=== PATIENT | female | born 1950 | race African-American/Black ===

== ENCOUNTER 2017-06-29 10:57 | Inpatient (IN) | payer BC ==
[~2017-06-29] VITALS: Ht 170.2 cm; Wt 58.5 kg
[2017-06-29 10:59] VITALS: BP_SYST 109
[2017-06-29] MEDS ORDERED: NACL 0.9% 1,000 ML IV SCH (11:13)
[2017-06-29] MEDS ORDERED: DILTIAZEM HCL 25 MG/5 ML VIAL IVP ONE (11:30)
[2017-06-29] MEDS ORDERED: AMIODARONE HCL 150 MG in D5W 97 ML IV ONE (12:00)
[2017-06-29 12:10] LABS: HEMOGLOBIN 13.1 g/dL (12.0-16.0); RED CELL DISTRIBUTION WIDTH 14.2 % (9.0-15.0)
[2017-06-29] MEDS ORDERED: AMIODARONE HCL 150 MG/3ML VIAL ONE (12:13)
[2017-06-29 12:15] LABS: CALCIUM 8.7 mg/dL (8.4-11.0); CREATININE 1.06 mg/dL (0.55-1.30); POTASSIUM 4.5 mmol/L (3.5-5.1)
[2017-06-29 12:16] LABS: BILIRUBIN,URINE NEGATIVE (NEGATIVE); BLOOD, URINE NEGATIVE (NEGATIVE); CLARITY/URINE SL HAZY (CLEAR); COLOR,URINE YELLOW (YELLOW); GLUCOSE,URINE NEGATIVE (NEGATIVE); KETONES,URINE NEGATIVE (NEGATIVE); LEUKOCYTE ESTERASE ,URINE 1+ (NEGATIVE); NITRITE, URINE NEGATIVE (NEGATIVE); PH,URINE 5.5 (5.0-8.0); PROTEIN URINE NEGATIVE (NEGATIVE); UROBILINOGEN,URINE 0.2 (0.2-1.0)
[2017-06-29 12:20] LABS: ALBUMIN 3.9 g/dL (3.4-4.8); TOTAL BILIRUBIN 0.5 mg/dL (0.0-1.0)
[2017-06-29 12:21] LABS: BASOPHILS # (AUTO) 0.1 K/uL (0.0-0.2); EOSINOPHILS # (AUTO) 0.1 K/uL (0.0-0.4); EOSINOPHILS % (AUTO) 1.8 % (0.0-4.0); HEMATOCRIT 39.8 % (36-48); LYMPHOCYTES # (AUTO) 2.1 K/uL (1.0-5.5); LYMPHOCYTES % (AUTO) 42.8 % (20.5-51.5); MEAN CORPUSCULAR HEMOGLOBIN 32 pg (27-31); MEAN CORPUSCULAR HGB CONC 33 % (32-36); MEAN CORPUSCULAR VOLUME 98 fL (79.0-98.0); MONOCYTES # (AUTO) 0.5 K/uL (0.0-1.0); MONOCYTES % (AUTO) 10.1 % (1.7-9.3); NEUTROPHILS # (AUTO) 2.1 K/uL (1.8-7.7); NEUTROPHILS % (AUTO) 43.3 % (40.0-70.0); PLATELET COUNT (AUTO) 153 K/uL (130-430); RED BLOOD CELL COUNT(AUTO) 4.06 MIL/uL (4.2-6.2); WHITE BLOOD COUNT (AUTO) 4.9 K/uL (4.8-10.8)
[2017-06-29 12:26] LABS: BACTERIA,URINE FEW /HPF (None Seen); RBC,URINE 0-3 /HPF (0-3)
[2017-06-29 12:27] LABS: MUCUS,URINE 1+ /LPF (None Seen)
[2017-06-29 13:54] LABS: BARBITURATE, URINE NEGATIVE (NEG <=200); BENZODIAZEPINE, URINE NEGATIVE (NEG <=150); CANNABINOID, URINE NEGATIVE (NEG <=50); COCAINE, URINE NEGATIVE (NEG <=150); METHAMPHETAMINES SCREEN,URINE NEGATIVE (NEG <=500); OPIATE, URINE NEGATIVE (NEG <=100); PHENCYCLIDINE SCREEN,URINE NEGATIVE (NEG <=25); UR TRICYCLIC ANTIDEPRESSANTS NEGATIVE (NEG <=300); URINE AMPHETAMINE NEGATIVE (NEG <=500); URINE METHADONE NEGATIVE (NEG <=200); URINE OXYCODONE SCREEN NEGATIVE (NEG <=100); URINE PROPOXYPHENE SCREEN NEGATIVE (NEG <=300)
[2017-06-29] MEDS ORDERED: METOPROLOL TARTRATE 25 MG TABLET PO SCH (14:00)
[2017-06-29 14:25] VITALS: BP_SYST 105
[2017-06-29] MEDS ORDERED: AMIODARONE HCL 200 MG TABLET PO ONE (16:15)
[2017-06-29 17:57] VITALS: BP_SYST 100
[2017-06-29] MEDS ORDERED: METOPROLOL TARTRATE 25 MG TABLET PO ONE (18:00)
[2017-06-29] MEDS ORDERED: HEPARIN 25,000 UNITS/D5W 250ML 250 ML IV PRN (19:00)
[2017-06-29] MEDS ORDERED: HEPARIN SODIUM,PORCINE 3000 UNITS/0.6 ML BOLUS IVP PRN (19:00)
[2017-06-29] MEDS ORDERED: HEPARIN SODIUM,PORCINE 5000 UNITS/ML VIAL IV ONE (19:00)
[2017-06-29] MEDS ORDERED: HEPARIN SODIUM,PORCINE 2000 UNITS/0.4 ML BOLUS IVP PRN (19:00)
[2017-06-29 20:00] VITALS: BP_SYST 97
[2017-06-29] MEDS: METOPROLOL TARTRATE 25 MG TABLET PO SCH (21:00)
[2017-06-29 21:03] LABS: PROTHROMBIN TIME 10.4 SECS (9.5-12.5)
[2017-06-29] MEDS: HEPARIN 25,000 UNITS in 250 ML PREMIX IV PRN (22:19)
[2017-06-30] VITALS: BP_SYST 99
[2017-06-30 04:04] VITALS: BP_SYST 101
[2017-06-30 04:50] LABS: EOSINOPHILS % (AUTO) 1.4 % (0.0-4.0); HEMOGLOBIN 13.1 g/dL (12.0-16.0); LYMPHOCYTES % (AUTO) 46.8 % (20.5-51.5); MEAN CORPUSCULAR HEMOGLOBIN 32 pg (27-31); MEAN CORPUSCULAR HGB CONC 33 % (32-36); MEAN CORPUSCULAR VOLUME 98 fL (79.0-98.0); MONOCYTES % (AUTO) 10.9 % (1.7-9.3); NEUTROPHILS # (AUTO) 1.9 K/uL (1.8-7.7); NEUTROPHILS % (AUTO) 38.9 % (40.0-70.0); PLATELET COUNT (AUTO) 151 K/uL (130-430); RED BLOOD CELL COUNT(AUTO) 4.09 MIL/uL (4.2-6.2); RED CELL DISTRIBUTION WIDTH 14.3 % (9.0-15.0); WHITE BLOOD COUNT (AUTO) 4.9 K/uL (4.8-10.8)
[2017-06-30 04:51] LABS: BASOPHILS # (AUTO) 0.1 K/uL (0.0-0.2); EOSINOPHILS # (AUTO) 0.1 K/uL (0.0-0.4); LYMPHOCYTES # (AUTO) 2.3 K/uL (1.0-5.5); MONOCYTES # (AUTO) 0.5 K/uL (0.0-1.0)
[2017-06-30 05:12] LABS: CALCIUM 8.3 mg/dL (8.4-11.0); CREATININE 0.97 mg/dL (0.55-1.30); FREE T4 (FREE THYROXINE) 0.8 ng/dL (0.6-1.6); POTASSIUM 4.4 mmol/L (3.5-5.1); THYROID STIMULATING HORMONE 1.24 uIu/mL (0.34-4.82)
[2017-06-30] MEDS: HEPARIN 25,000 UNITS in 250 ML PREMIX IV PRN (06:25)
[2017-06-30] MEDS ORDERED: AMIODARONE HCL 200 MG TABLET PO ONE (08:45)
[2017-06-30 08:49] VITALS: BP_SYST 117
[2017-06-30] MEDS: METOPROLOL TARTRATE 25 MG TABLET PO SCH ×2 (08:56→20:43)
[2017-06-30 11:38] VITALS: BP_SYST 127
[2017-06-30] MEDS: AMIODARONE HCL 200 MG TABLET PO SCH ×2 (13:07→21:55)
[2017-06-30 15:42] VITALS: BP_SYST 118
[2017-06-30] MEDS: RIVAROXABAN 10 MG TABLET PO SCH (17:23)
[2017-06-30 20:00] VITALS: BP_SYST 115
[2017-07-01 00:55] VITALS: BP_SYST 114
[2017-07-01] MEDS: HEPARIN 25,000 UNITS in 250 ML PREMIX IV PRN (03:59)
[2017-07-01 04:00] VITALS: BP_SYST 145
[2017-07-01] MEDS: AMIODARONE HCL 200 MG TABLET PO SCH ×3 (06:29→22:23)
[2017-07-01 08:26] VITALS: BP_SYST 116
[2017-07-01] MEDS: METOPROLOL TARTRATE 25 MG TABLET PO SCH ×2 (09:07→21:00)
[2017-07-01 12:10] VITALS: BP_SYST 109
[2017-07-01 16:09] VITALS: BP_SYST 112
[2017-07-01] MEDS: RIVAROXABAN 10 MG TABLET PO SCH (17:57)
[2017-07-01 20:00] VITALS: BP_SYST 91
[2017-07-02] VITALS (9 sets, daily range): BP systolic 90–159
[2017-07-02] MEDS: AMIODARONE HCL 200 MG TABLET PO SCH ×2 (05:10→14:17)
[2017-07-02 06:39] LABS: BASOPHILS % (AUTO) 0.2 % (0.0-2.0); EOSINOPHILS # (AUTO) 0.1 K/uL (0.0-0.4); EOSINOPHILS % (AUTO) 1.1 % (0.0-4.0); HEMATOCRIT 39.1 % (36-48); HEMOGLOBIN 13.1 g/dL (12.0-16.0); LYMPHOCYTES # (AUTO) 1.5 K/uL (1.0-5.5); LYMPHOCYTES % (AUTO) 27.3 % (20.5-51.5); MEAN CORPUSCULAR HEMOGLOBIN 32 pg (27-31); MEAN CORPUSCULAR HGB CONC 34 % (32-36); MEAN CORPUSCULAR VOLUME 96 fL (79.0-98.0); MONOCYTES # (AUTO) 0.8 K/uL (0.0-1.0); MONOCYTES % (AUTO) 14.8 % (1.7-9.3); NEUTROPHILS % (AUTO) 56.6 % (40.0-70.0); PLATELET COUNT (AUTO) 144 K/uL (130-430); RED BLOOD CELL COUNT(AUTO) 4.06 MIL/uL (4.2-6.2); RED CELL DISTRIBUTION WIDTH 14.3 % (9.0-15.0); WHITE BLOOD COUNT (AUTO) 5.4 K/uL (4.8-10.8)
[2017-07-02 07:02] LABS: ALBUMIN 3.5 g/dL (3.4-4.8); CALCIUM 8.6 mg/dL (8.4-11.0); CREATININE 1.03 mg/dL (0.55-1.30); POTASSIUM 4.1 mmol/L (3.5-5.1); TOTAL BILIRUBIN 0.7 mg/dL (0.0-1.0)
[2017-07-02] MEDS: METOPROLOL TARTRATE 25 MG TABLET PO SCH ×2 (09:14→20:38)
[2017-07-02] MEDS: RIVAROXABAN 10 MG TABLET PO SCH (17:51)
[2017-07-02] MEDS ORDERED: AMIODARONE HCL 200 MG TABLET PO SCH (22:00)
[2017-07-02] MEDS ORDERED: LORazepam 2 MG/ML VIAL ONE ×2 (22:40→23:39)
[2017-07-02] MEDS ORDERED: LORazepam 2 MG/ML VIAL IVP ONE (22:45)
[2017-07-02] MEDS ORDERED: HYDROCORTISONE SOD SUCC 100 MG/2 ML VIAL ONE (23:58)
[2017-07-03] VITALS (40 sets, daily range): BP systolic 55–154
[2017-07-03] MEDS ORDERED: IPRATROPIUM/ALBUTEROL SULFATE 3 ML AMPUL.NEB INH PRN
[2017-07-03] MEDS: methylPREDNISolone SOD SUCC/PF 62.5 MG/ML VIAL IVP SCH ×5 (00:09→23:33)
[2017-07-03] MEDS ORDERED: SODIUM BICARBONATE 8.4% JECT 50 MEQ/50 ML SYRINGE ONE (00:14)
[2017-07-03] MEDS ORDERED: SODIUM BICARBONATE 8.4% IV SCH (00:15)
[2017-07-03] MEDS ORDERED: D5W IV SCH (00:15)
[2017-07-03] MEDS ORDERED: JECT IV SCH (00:15)
[2017-07-03] MEDS ORDERED: CEFEPIME 1 GM in D5W 50 ML IV ONE (00:30)
[2017-07-03] MEDS ORDERED: NOREPINEPHRINE BITARTRATE 4 MG in D5W 246 ML IV PRN (00:30)
[2017-07-03 00:37] LABS: BASOPHILS # (AUTO) 0.3 K/uL (0.0-0.2); BASOPHILS % (AUTO) 2.6 % (0.0-2.0); EOSINOPHILS # (AUTO) 0.1 K/uL (0.0-0.4); EOSINOPHILS % (AUTO) 0.9 % (0.0-4.0); HEMATOCRIT 42.3 % (36-48); HEMOGLOBIN 13.6 g/dL (12.0-16.0); LYMPHOCYTES # (AUTO) 5.1 K/uL (1.0-5.5); LYMPHOCYTES % (AUTO) 48.7 % (20.5-51.5); MEAN CORPUSCULAR HEMOGLOBIN 32 pg (27-31); MEAN CORPUSCULAR HGB CONC 32 % (32-36); MEAN CORPUSCULAR VOLUME 100 fL (79.0-98.0); MONOCYTES # (AUTO) 0.7 K/uL (0.0-1.0); MONOCYTES % (AUTO) 7.2 % (1.7-9.3); NEUTROPHILS # (AUTO) 4.2 K/uL (1.8-7.7); NEUTROPHILS % (AUTO) 40.6 % (40.0-70.0); PLATELET COUNT (AUTO) 153 K/uL (130-430); RED BLOOD CELL COUNT(AUTO) 4.22 MIL/uL (4.2-6.2); RED CELL DISTRIBUTION WIDTH 14.9 % (9.0-15.0); WHITE BLOOD COUNT (AUTO) 10.4 K/uL (4.8-10.8)
[2017-07-03] MEDS ORDERED: PROPOFOL DRIP 100 ML IV PRN (00:45)
[2017-07-03] MEDS ORDERED: VANCOMYCIN HCL 1 GM/NS PREMIX 250 ML IV ONE (00:45)
[2017-07-03 00:52] LABS: ALBUMIN 3.2 g/dL (3.4-4.8); CREATININE 1.78 mg/dL (0.55-1.30); POTASSIUM 4.8 mmol/L (3.5-5.1); TOTAL BILIRUBIN 0.6 mg/dL (0.0-1.0)
[2017-07-03] MEDS ORDERED: LORazepam 2 MG/ML VIAL IVP ONE (01:15)
[2017-07-03] MEDS ORDERED: PROPOFOL DRIP 100 ML IV ONE (01:38)
[2017-07-03 01:53] LABS: BILIRUBIN,URINE NEGATIVE (NEGATIVE); BLOOD, URINE NEGATIVE (NEGATIVE); CLARITY/URINE CLEAR (CLEAR); COLOR,URINE YELLOW (YELLOW); GLUCOSE,URINE NEGATIVE (NEGATIVE); KETONES,URINE NEGATIVE (NEGATIVE); LEUKOCYTE ESTERASE ,URINE TRACE (NEGATIVE); NITRITE, URINE NEGATIVE (NEGATIVE); PROTEIN URINE NEGATIVE (NEGATIVE); UROBILINOGEN,URINE 0.2 (0.2-1.0)
[2017-07-03] MEDS ORDERED: CEFEPIME 1 GM/VIAL (MAXIPIME) ONE (01:59)
[2017-07-03] MEDS ORDERED: VANCOMYCIN HCL 1000 MG/VIAL IV ONE (02:00)
[2017-07-03 02:03] LABS: BACTERIA,URINE MODERATE /HPF (None Seen); RBC,URINE 0-3 /HPF (0-3)
[2017-07-03 02:12] LABS: BARBITURATE, URINE NEGATIVE (NEG <=200); BENZODIAZEPINE, URINE NEGATIVE (NEG <=150); CANNABINOID, URINE NEGATIVE (NEG <=50); COCAINE, URINE NEGATIVE (NEG <=150); METHAMPHETAMINES SCREEN,URINE NEGATIVE (NEG <=500); OPIATE, URINE NEGATIVE (NEG <=100); PHENCYCLIDINE SCREEN,URINE NEGATIVE (NEG <=25); UR TRICYCLIC ANTIDEPRESSANTS NEGATIVE (NEG <=300); URINE AMPHETAMINE NEGATIVE (NEG <=500); URINE METHADONE NEGATIVE (NEG <=200); URINE OXYCODONE SCREEN NEGATIVE (NEG <=100); URINE PROPOXYPHENE SCREEN NEGATIVE (NEG <=300)
[2017-07-03] MEDS ORDERED: PANTOPRAZOLE SODIUM 40 MG/VIAL (PROTONIX) ONE (02:23)
[2017-07-03] MEDS: PROPOFOL DRIP 100 ML IV PRN ×3 (02:30→18:09)
[2017-07-03] MEDS: PANTOPRAZOLE SODIUM 40 MG/VIAL (PROTONIX) IVP SCH ×3 (02:35→20:31)
[2017-07-03] MEDS ORDERED: SODIUM BICARBONATE 8.4% IV ONE (02:55)
[2017-07-03] MEDS ORDERED: D5W IV ONE (02:55)
[2017-07-03] MEDS ORDERED: JECT IV ONE (02:55)
[2017-07-03] MEDS: IPRATROPIUM/ALBUTEROL SULFATE 3 ML AMPUL.NEB INH SCH ×6 (03:48→23:59)
[2017-07-03] MEDS ORDERED: NACL 0.9% 250 ML IV ONE (05:30)
[2017-07-03] MEDS: FLUCONAZOLE 200 mg/ NS 100 ML IV SCH ×2 (05:30→09:05)
[2017-07-03 06:35] LABS: HEMATOCRIT 39.2 % (36-48); HEMOGLOBIN 13.1 g/dL (12.0-16.0); MEAN CORPUSCULAR HEMOGLOBIN 33 pg (27-31); MEAN CORPUSCULAR HGB CONC 33 % (32-36); MEAN CORPUSCULAR VOLUME 99 fL (79.0-98.0); PLATELET COUNT (AUTO) 180 K/uL (130-430); RED BLOOD CELL COUNT(AUTO) 3.96 MIL/uL (4.2-6.2); RED CELL DISTRIBUTION WIDTH 14.8 % (9.0-15.0)
[2017-07-03] MEDS ORDERED: NOREPINEPHRINE 4 MG/4 ML VIAL IV ONE (07:14)
[2017-07-03] MEDS ORDERED: SUCCINYLCHOLINE CHLORIDE 20 MG/ML(QUELICIN) IVP ONE (08:04)
[2017-07-03] MEDS ORDERED: ETOMIDATE 20 MG/ 10 ML VIAL (AMIDATE) IVP ONE (08:04)
[2017-07-03] MEDS ORDERED: DOPamine PREMIX 250 ML IV PRN (08:15)
[2017-07-03] MEDS ORDERED: NS 500 ML IV ONE ×2 (08:15→09:15)
[2017-07-03 08:26] LABS: BAND % (MANUAL) 7 % (0-6); BASOPHILS % (MANUAL) 0 % (0-2); EOSINOPHILS % (MANUAL) 0 % (0-7); LYMPHOCYTES % (MANUAL) 3 % (20-46); MONOCYTES % (MANUAL) 6 % (0-11)
[2017-07-03] MEDS: CEFEPIME 1 GM in D5W 50 ML IV SCH ×2 (09:05→20:31)
[2017-07-03] MEDS ORDERED: LACTOBACILLUS RHAMNOSUS GG 1 CAP CAPSULE PO ONE (09:45)
[2017-07-03] MEDS ORDERED: metroNIDAZOLE 500 MG TABLET NG ONE (09:45)
[2017-07-03] MEDS: NACL 0.9% 1,000 ML IV SCH ×3 (09:52→18:13)
[2017-07-03] MEDS: LORazepam 2 MG/ML VIAL IVP PRN ×3 (09:53→18:34)
[2017-07-03] MEDS: NOREPINEPHRINE BITARTRATE 8 MG in D5W 242 ML IV PRN ×2 (11:28→18:10)
[2017-07-03 12:29] LABS: BARBITURATE, URINE NEGATIVE (NEG <=200); BENZODIAZEPINE, URINE NEGATIVE (NEG <=150); CANNABINOID, URINE NEGATIVE (NEG <=50); COCAINE, URINE NEGATIVE (NEG <=150); METHAMPHETAMINES SCREEN,URINE NEGATIVE (NEG <=500); URINE AMPHETAMINE NEGATIVE (NEG <=500); URINE METHADONE NEGATIVE (NEG <=200)
[2017-07-03 12:30] LABS: OPIATE, URINE NEGATIVE (NEG <=100); PHENCYCLIDINE SCREEN,URINE NEGATIVE (NEG <=25); UR TRICYCLIC ANTIDEPRESSANTS NEGATIVE (NEG <=300); URINE OXYCODONE SCREEN NEGATIVE (NEG <=100); URINE PROPOXYPHENE SCREEN NEGATIVE (NEG <=300)
[2017-07-03] MEDS: metroNIDAZOLE 500 MG TABLET NG SCH ×2 (13:29→21:54)
[2017-07-03 14:20] LABS: HEMATOCRIT 46.5 % (36-48); HEMOGLOBIN 14.8 g/dL (12.0-16.0); MEAN CORPUSCULAR HEMOGLOBIN 32 pg (27-31); MEAN CORPUSCULAR HGB CONC 32 % (32-36); MEAN CORPUSCULAR VOLUME 100 fL (79.0-98.0); PLATELET COUNT (AUTO) 150 K/uL (130-430); RED BLOOD CELL COUNT(AUTO) 4.67 MIL/uL (4.2-6.2); RED CELL DISTRIBUTION WIDTH 14.6 % (9.0-15.0)
[2017-07-03 14:39] LABS: CALCIUM 7.5 mg/dL (8.4-11.0); CREATININE 1.85 mg/dL (0.55-1.30); POTASSIUM 4.8 mmol/L (3.5-5.1)
[2017-07-03] MEDS ORDERED: NACL 0.9% 1,000 ML IV ONE (15:00)
[2017-07-03] MEDS ORDERED: FUROSEMIDE 20 MG TABLET PO ONE (15:00)
[2017-07-03 15:14] LABS: WHITE BLOOD COUNT (AUTO) 19.4 K/uL (4.8-10.8)
[2017-07-03 15:16] LABS: BAND % (MANUAL) 2 % (0-6); BASOPHILS % (MANUAL) 0 % (0-2); EOSINOPHILS % (MANUAL) 0 % (0-7); LYMPHOCYTES % (MANUAL) 2 % (20-46); MONOCYTES % (MANUAL) 4 % (0-11)
[2017-07-03] MEDS ORDERED: FUROSEMIDE 20 MG/2 ML VIAL IVP ONE (15:45)
[2017-07-03] MEDS: ENOXAPARIN SODIUM 30 MG/0.3 ML SYRINGE SUBCUT SCH (20:32)
[2017-07-03] MEDS: LACTOBACILLUS RHAMNOSUS GG 1 CAP CAPSULE PO SCH (20:32)
[2017-07-04] VITALS (35 sets, daily range): BP systolic 93–147
[2017-07-04] MEDS: NACL 0.9% 1,000 ML IV SCH ×3 (02:54→20:24)
[2017-07-04] MEDS: IPRATROPIUM/ALBUTEROL SULFATE 3 ML AMPUL.NEB INH SCH ×6 (03:27→23:26)
[2017-07-04] MEDS: PROPOFOL DRIP 100 ML IV PRN (04:31)
[2017-07-04] MEDS: NOREPINEPHRINE BITARTRATE 8 MG in D5W 242 ML IV PRN (05:35)
[2017-07-04] MEDS: methylPREDNISolone SOD SUCC/PF 62.5 MG/ML VIAL IVP SCH ×4 (05:51→23:50)
[2017-07-04] MEDS: metroNIDAZOLE 500 MG TABLET NG SCH (05:51)
[2017-07-04 06:35] LABS: BASOPHILS # (AUTO) 0.2 K/uL (0.0-0.2); BASOPHILS % (AUTO) 0.8 % (0.0-2.0); EOSINOPHILS % (AUTO) 0.1 % (0.0-4.0); HEMATOCRIT 40.2 % (36-48); HEMOGLOBIN 12.9 g/dL (12.0-16.0); LYMPHOCYTES # (AUTO) 0.3 K/uL (1.0-5.5); LYMPHOCYTES % (AUTO) 1.7 % (20.5-51.5); MEAN CORPUSCULAR HEMOGLOBIN 32 pg (27-31); MEAN CORPUSCULAR HGB CONC 32 % (32-36); MEAN CORPUSCULAR VOLUME 100 fL (79.0-98.0); MONOCYTES # (AUTO) 0.4 K/uL (0.0-1.0); MONOCYTES % (AUTO) 1.8 % (1.7-9.3); NEUTROPHILS # (AUTO) 18.8 K/uL (1.8-7.7); NEUTROPHILS % (AUTO) 95.6 % (40.0-70.0); RED BLOOD CELL COUNT(AUTO) 4.04 MIL/uL (4.2-6.2); RED CELL DISTRIBUTION WIDTH 15.5 % (9.0-15.0); WHITE BLOOD COUNT (AUTO) 19.7 K/uL (4.8-10.8)
[2017-07-04 06:40] LABS: ALBUMIN 2.6 g/dL (3.4-4.8); CREATININE 1.59 mg/dL (0.55-1.30); PHOSPHORUS 5.5 mg/dL (2.7-4.5); POTASSIUM 5.2 mmol/L (3.5-5.1); TOTAL BILIRUBIN 0.4 mg/dL (0.0-1.0)
[2017-07-04 07:59] LABS: PLATELET COUNT (AUTO) 146 K/uL (130-430)
[2017-07-04] MEDS: CEFEPIME 1 GM in D5W 50 ML IV SCH ×2 (09:40→14:52)
[2017-07-04] MEDS: LACTOBACILLUS RHAMNOSUS GG 1 CAP CAPSULE PO SCH ×2 (09:40→20:23)
[2017-07-04] MEDS: PANTOPRAZOLE SODIUM 40 MG/VIAL (PROTONIX) IVP SCH ×2 (09:41→20:23)
[2017-07-04] MEDS: LORazepam 2 MG/ML VIAL IVP PRN (10:52)
[2017-07-04] MEDS ORDERED: SODIUM BICARBONATE 8.4% VIAL 50 MEQ/50 ML VIAL INJ ONE (14:15)
[2017-07-04] MEDS ORDERED: SODIUM BICARBONATE 8.4% JECT 50 MEQ/50 ML SYRINGE ONE (14:49)
[2017-07-04] MEDS: VANCOMYCIN HCL 1,000 MG in D5W 250 ML IV SCH (14:54)
[2017-07-04] MEDS: ENOXAPARIN SODIUM 30 MG/0.3 ML SYRINGE SUBCUT SCH (20:23)
[2017-07-05] VITALS (30 sets, daily range): BP systolic 102–148
[2017-07-05] MEDS: CEFEPIME 1 GM in D5W 50 ML IV SCH ×2 (01:46→13:09)
[2017-07-05] MEDS: IPRATROPIUM/ALBUTEROL SULFATE 3 ML AMPUL.NEB INH SCH ×6 (02:06→23:12)
[2017-07-05] MEDS: FLUCONAZOLE 200 mg/ NS 100 ML IV SCH (05:32)
[2017-07-05] MEDS: methylPREDNISolone SOD SUCC/PF 62.5 MG/ML VIAL IVP SCH ×3 (05:33→21:10)
[2017-07-05 06:35] LABS: BASOPHILS % (AUTO) 0.1 % (0.0-2.0); HEMATOCRIT 32.9 % (36-48); LYMPHOCYTES # (AUTO) 0.2 K/uL (1.0-5.5); MEAN CORPUSCULAR HEMOGLOBIN 33 pg (27-31); MEAN CORPUSCULAR HGB CONC 34 % (32-36); MEAN CORPUSCULAR VOLUME 98 fL (79.0-98.0); MONOCYTES # (AUTO) 0.3 K/uL (0.0-1.0); MONOCYTES % (AUTO) 1.5 % (1.7-9.3); NEUTROPHILS # (AUTO) 17.3 K/uL (1.8-7.7); NEUTROPHILS % (AUTO) 97.4 % (40.0-70.0); PLATELET COUNT (AUTO) 120 K/uL (130-430); RED BLOOD CELL COUNT(AUTO) 3.36 MIL/uL (4.2-6.2); RED CELL DISTRIBUTION WIDTH 15.2 % (9.0-15.0); WHITE BLOOD COUNT (AUTO) 17.8 K/uL (4.8-10.8)
[2017-07-05 06:57] LABS: ALBUMIN 2.6 g/dL (3.4-4.8); CALCIUM 7.3 mg/dL (8.4-11.0); CREATININE 1.16 mg/dL (0.55-1.30); TOTAL BILIRUBIN 0.2 mg/dL (0.0-1.0)
[2017-07-05] MEDS: PANTOPRAZOLE SODIUM 40 MG/VIAL (PROTONIX) IVP SCH (09:04)
[2017-07-05] MEDS: LACTOBACILLUS RHAMNOSUS GG 1 CAP CAPSULE PO SCH ×2 (09:04→21:10)
[2017-07-05] MEDS: NACL 0.9% 1,000 ML IV SCH ×5 (09:05→21:30)
[2017-07-05] MEDS: VANCOMYCIN HCL 1,000 MG in D5W 250 ML IV SCH (14:34)
[2017-07-05] MEDS: PROPOFOL DRIP 100 ML IV PRN (21:07)
[2017-07-05] MEDS: ENOXAPARIN SODIUM 30 MG/0.3 ML SYRINGE SUBCUT SCH (21:10)
[2017-07-06] VITALS (28 sets, daily range): BP systolic 101–148
[2017-07-06] MEDS: CEFEPIME 1 GM in D5W 50 ML IV SCH ×2 (02:34→15:29)
[2017-07-06] MEDS: IPRATROPIUM/ALBUTEROL SULFATE 3 ML AMPUL.NEB INH SCH ×6 (04:10→23:16)
[2017-07-06] MEDS: FLUCONAZOLE 200 mg/ NS 100 ML IV SCH (05:06)
[2017-07-06] MEDS: methylPREDNISolone SOD SUCC/PF 62.5 MG/ML VIAL IVP SCH ×3 (05:06→21:19)
[2017-07-06] MEDS: PROPOFOL DRIP 100 ML IV PRN ×2 (06:18→15:37)
[2017-07-06 06:53] LABS: BASOPHILS % (AUTO) 0.2 % (0.0-2.0); HEMOGLOBIN 10.4 g/dL (12.0-16.0); LYMPHOCYTES # (AUTO) 0.2 K/uL (1.0-5.5); LYMPHOCYTES % (AUTO) 1.6 % (20.5-51.5); MEAN CORPUSCULAR HEMOGLOBIN 32 pg (27-31); MEAN CORPUSCULAR HGB CONC 33 % (32-36); MEAN CORPUSCULAR VOLUME 99 fL (79.0-98.0); MONOCYTES # (AUTO) 0.3 K/uL (0.0-1.0); MONOCYTES % (AUTO) 1.7 % (1.7-9.3); NEUTROPHILS # (AUTO) 14.9 K/uL (1.8-7.7); NEUTROPHILS % (AUTO) 96.5 % (40.0-70.0); PLATELET COUNT (AUTO) 122 K/uL (130-430); RED BLOOD CELL COUNT(AUTO) 3.23 MIL/uL (4.2-6.2); RED CELL DISTRIBUTION WIDTH 15.1 % (9.0-15.0); WHITE BLOOD COUNT (AUTO) 15.4 K/uL (4.8-10.8)
[2017-07-06 07:21] LABS: CALCIUM 7.8 mg/dL (8.4-11.0); CREATININE 0.86 mg/dL (0.55-1.30); POTASSIUM 4.4 mmol/L (3.5-5.1)
[2017-07-06] MEDS ORDERED: FUROSEMIDE 20 MG/2 ML VIAL IVP ONE (08:00)
[2017-07-06 08:04] LABS: PHOSPHORUS 2.2 mg/dL (2.7-4.5)
[2017-07-06] MEDS: CARVEDILOL 6.25 MG TABLET (COREG) PO SCH ×2 (08:38→21:15)
[2017-07-06] MEDS: LACTOBACILLUS RHAMNOSUS GG 1 CAP CAPSULE PO SCH ×2 (08:39→21:15)
[2017-07-06] MEDS: PANTOPRAZOLE SODIUM 40 MG/VIAL (PROTONIX) IVP SCH (08:39)
[2017-07-06] MEDS: 0.45% NACL 1,000 ML IV SCH (11:37)
[2017-07-06] MEDS ORDERED: NAPH,MB-DB/K PH,MBDB 250 MG TAB NG ONE (14:15)
[2017-07-06] MEDS: metroNIDAZOLE 250 mg/NS 50 ML IV SCH ×2 (14:20→21:15)
[2017-07-06] MEDS: VANCOMYCIN HCL 1,000 MG in D5W 250 ML IV SCH (15:13)
[2017-07-06] MEDS: ENOXAPARIN SODIUM 30 MG/0.3 ML SYRINGE SUBCUT SCH (21:15)
[2017-07-07] VITALS (29 sets, daily range): BP systolic 106–157
[2017-07-07] MEDS: CEFEPIME 1 GM in D5W 50 ML IV SCH ×2 (01:28→13:08)
[2017-07-07] MEDS: IPRATROPIUM/ALBUTEROL SULFATE 3 ML AMPUL.NEB INH SCH ×6 (04:01→23:28)
[2017-07-07] MEDS: PROPOFOL DRIP 100 ML IV PRN (05:17)
[2017-07-07] MEDS: FLUCONAZOLE 200 mg/ NS 100 ML IV SCH (05:57)
[2017-07-07] MEDS: metroNIDAZOLE 250 mg/NS 50 ML IV SCH ×3 (05:57→21:05)
[2017-07-07] MEDS: methylPREDNISolone SOD SUCC/PF 62.5 MG/ML VIAL IVP SCH (06:11)
[2017-07-07] MEDS: 0.45% NACL 1,000 ML IV SCH (06:11)
[2017-07-07 06:28] LABS: BASOPHILS % (AUTO) 0.1 % (0.0-2.0); HEMATOCRIT 35.5 % (36-48); HEMOGLOBIN 11.5 g/dL (12.0-16.0); LYMPHOCYTES # (AUTO) 0.2 K/uL (1.0-5.5); LYMPHOCYTES % (AUTO) 1.8 % (20.5-51.5); MEAN CORPUSCULAR HEMOGLOBIN 32 pg (27-31); MEAN CORPUSCULAR HGB CONC 32 % (32-36); MEAN CORPUSCULAR VOLUME 98 fL (79.0-98.0); MONOCYTES # (AUTO) 0.3 K/uL (0.0-1.0); MONOCYTES % (AUTO) 2.3 % (1.7-9.3); NEUTROPHILS # (AUTO) 11.5 K/uL (1.8-7.7); NEUTROPHILS % (AUTO) 95.8 % (40.0-70.0); PLATELET COUNT (AUTO) 123 K/uL (130-430); RED BLOOD CELL COUNT(AUTO) 3.61 MIL/uL (4.2-6.2); RED CELL DISTRIBUTION WIDTH 15.3 % (9.0-15.0)
[2017-07-07 06:41] LABS: ALBUMIN 2.6 g/dL (3.4-4.8); CALCIUM 7.7 mg/dL (8.4-11.0); CREATININE 0.97 mg/dL (0.55-1.30); POTASSIUM 4.4 mmol/L (3.5-5.1); TOTAL BILIRUBIN 0.4 mg/dL (0.0-1.0)
[2017-07-07 06:57] LABS: TOTAL IRON BIND. CAPACITY 220 ug/dL (250-450)
[2017-07-07] MEDS ORDERED: FUROSEMIDE 40 MG/4 ML VIAL IVP ONE (08:00)
[2017-07-07] MEDS: LACTOBACILLUS RHAMNOSUS GG 1 CAP CAPSULE PO SCH ×2 (08:21→21:04)
[2017-07-07] MEDS: PANTOPRAZOLE SODIUM 40 MG/VIAL (PROTONIX) IVP SCH (08:22)
[2017-07-07] MEDS: CARVEDILOL 6.25 MG TABLET (COREG) PO SCH ×2 (08:22→21:04)
[2017-07-07 09:08] LABS: ERYTHROCYTE SEDIMENTATION RATE 4 MM/HR (0-20)
[2017-07-07] MEDS ORDERED: METOPROLOL TARTRATE 5 MG/5 ML VIAL ONE (10:54)
[2017-07-07] MEDS ORDERED: METOPROLOL TARTRATE 5 MG/5 ML VIAL IVP ONE ×2 (11:00→11:45)
[2017-07-07] MEDS ORDERED: DIGOXIN 0.5 MG/2 ML AMP IVP ONE (13:00)
[2017-07-07] MEDS ORDERED: DIGOXIN 0.5 MG/2 ML AMP ONE (13:15)
[2017-07-07] MEDS: VANCOMYCIN HCL 1,000 MG in D5W 250 ML IV SCH (13:20)
[2017-07-07] MEDS: methylPREDNISolone SOD SUCC 40 MG/ML VIAL IVP SCH (21:03)
[2017-07-07] MEDS: AMIODARONE HCL 200 MG TABLET PO SCH (21:03)
[2017-07-07] MEDS: ENOXAPARIN SODIUM 30 MG/0.3 ML SYRINGE SUBCUT SCH (21:05)
[2017-07-08] VITALS (26 sets, daily range): BP systolic 111–152
[2017-07-08] MEDS: CEFEPIME 1 GM in D5W 50 ML IV SCH ×2 (01:08→13:13)
[2017-07-08] MEDS: MORPHINE 2 MG/ML INJ. SYRINGE IVP PRN (01:09)
[2017-07-08] MEDS: 0.45% NACL 1,000 ML IV SCH ×2 (01:10→21:17)
[2017-07-08] MEDS: IPRATROPIUM/ALBUTEROL SULFATE 3 ML AMPUL.NEB INH SCH ×6 (03:23→23:00)
[2017-07-08] MEDS: LORazepam 2 MG/ML VIAL IVP PRN ×3 (03:26→20:16)
[2017-07-08] MEDS: FLUCONAZOLE 200 mg/ NS 100 ML IV SCH (05:14)
[2017-07-08] MEDS: metroNIDAZOLE 250 mg/NS 50 ML IV SCH ×3 (05:18→23:06)
[2017-07-08 06:37] LABS: BASOPHILS % (AUTO) 0.3 % (0.0-2.0); EOSINOPHILS % (AUTO) 0.1 % (0.0-4.0); HEMATOCRIT 34.4 % (36-48); HEMOGLOBIN 11.3 g/dL (12.0-16.0); LYMPHOCYTES # (AUTO) 0.2 K/uL (1.0-5.5); LYMPHOCYTES % (AUTO) 2.7 % (20.5-51.5); MEAN CORPUSCULAR HEMOGLOBIN 32 pg (27-31); MEAN CORPUSCULAR HGB CONC 33 % (32-36); MEAN CORPUSCULAR VOLUME 99 fL (79.0-98.0); MONOCYTES # (AUTO) 0.1 K/uL (0.0-1.0); MONOCYTES % (AUTO) 1.2 % (1.7-9.3); NEUTROPHILS # (AUTO) 8.5 K/uL (1.8-7.7); NEUTROPHILS % (AUTO) 95.7 % (40.0-70.0); PLATELET COUNT (AUTO) 119 K/uL (130-430); RED BLOOD CELL COUNT(AUTO) 3.48 MIL/uL (4.2-6.2); RED CELL DISTRIBUTION WIDTH 15.2 % (9.0-15.0); WHITE BLOOD COUNT (AUTO) 8.8 K/uL (4.8-10.8)
[2017-07-08 07:04] LABS: CALCIUM 8.3 mg/dL (8.4-11.0); CREATININE 1.13 mg/dL (0.55-1.30); POTASSIUM 4.7 mmol/L (3.5-5.1)
[2017-07-08 07:19] LABS: ALBUMIN 2.5 g/dL (3.4-4.8); TOTAL BILIRUBIN 0.5 mg/dL (0.0-1.0)
[2017-07-08] MEDS ORDERED: DEXTROSE 50% JECT 50 ML DISP.SYRIN IVP PRN (08:00)
[2017-07-08] MEDS ORDERED: INSULIN REGULAR, HUMAN 100 UNITS/ML, 10 ML VIAL (novoLIN R) SUBCUT PRN (08:00)
[2017-07-08] MEDS ORDERED: FUROSEMIDE 20 MG/2 ML VIAL IVP ONE (08:15)
[2017-07-08] MEDS: methylPREDNISolone SOD SUCC 40 MG/ML VIAL IVP SCH ×2 (08:35→22:37)
[2017-07-08] MEDS: PANTOPRAZOLE SODIUM 40 MG/VIAL (PROTONIX) IVP SCH (08:35)
[2017-07-08] MEDS: AMIODARONE HCL 200 MG TABLET PO SCH ×2 (09:00→17:45)
[2017-07-08] MEDS: CARVEDILOL 6.25 MG TABLET (COREG) PO SCH ×2 (09:00→17:44)
[2017-07-08] MEDS: LACTOBACILLUS RHAMNOSUS GG 1 CAP CAPSULE PO SCH ×2 (09:00→22:38)
[2017-07-08] MEDS ORDERED: GLUCOSE 15 GM GEL (in 37.5 GM TUBE) PO PRN ×2 (10:30)
[2017-07-08] MEDS ORDERED: DEXTROSE 50%-WATER 50 ML DISP.SYRIN IVP PRN ×2 (10:30)
[2017-07-08] MEDS: INSULIN ASPART 100 UNITS/ML, 10 ML VIAL (NovoLOG) SUBCUT PRN ×2 (11:49→17:44)
[2017-07-08] MEDS: VANCOMYCIN HCL 750 MG in NS 250 ML IV SCH (14:40)
[2017-07-08] MEDS ORDERED: METOPROLOL TARTRATE 5 MG/5 ML VIAL IVP ONE (16:15)
[2017-07-08] MEDS ORDERED: AMIODARONE HCL 200 MG TABLET PO ONE (22:15)
[2017-07-08] MEDS ORDERED: CARVEDILOL 6.25 MG TABLET (COREG) PO ONE (22:15)
[2017-07-08] MEDS ORDERED: ENOXAPARIN SODIUM 40 MG/0.4 ML SYRINGE ONE (22:31)
[2017-07-08] MEDS: ENOXAPARIN SODIUM 30 MG/0.3 ML SYRINGE SUBCUT SCH (22:37)
[2017-07-09] VITALS (25 sets, daily range): BP systolic 89–125
[2017-07-09] MEDS: VANCOMYCIN HCL 750 MG in NS 250 ML IV SCH ×2 (01:54→15:50)
[2017-07-09] MEDS: IPRATROPIUM/ALBUTEROL SULFATE 3 ML AMPUL.NEB INH SCH ×6 (03:00→23:44)
[2017-07-09] MEDS: CEFEPIME 1 GM in D5W 50 ML IV SCH ×2 (03:25→13:56)
[2017-07-09] MEDS: FLUCONAZOLE 200 mg/ NS 100 ML IV SCH (05:33)
[2017-07-09 06:08] LABS: BASOPHILS % (AUTO) 0.2 % (0.0-2.0); HEMATOCRIT 36.1 % (36-48); HEMOGLOBIN 11.8 g/dL (12.0-16.0); LYMPHOCYTES # (AUTO) 0.2 K/uL (1.0-5.5); LYMPHOCYTES % (AUTO) 2.3 % (20.5-51.5); MEAN CORPUSCULAR HEMOGLOBIN 32 pg (27-31); MEAN CORPUSCULAR HGB CONC 33 % (32-36); MEAN CORPUSCULAR VOLUME 98 fL (79.0-98.0); MONOCYTES # (AUTO) 0.1 K/uL (0.0-1.0); NEUTROPHILS # (AUTO) 10.4 K/uL (1.8-7.7); PLATELET COUNT (AUTO) 118 K/uL (130-430); RED CELL DISTRIBUTION WIDTH 15.3 % (9.0-15.0); WHITE BLOOD COUNT (AUTO) 10.7 K/uL (4.8-10.8)
[2017-07-09] MEDS: metroNIDAZOLE 250 mg/NS 50 ML IV SCH ×3 (06:28→21:42)
[2017-07-09] MEDS: INSULIN ASPART 100 UNITS/ML, 10 ML VIAL (NovoLOG) SUBCUT PRN ×2 (06:30→18:58)
[2017-07-09 06:38] LABS: CREATININE 0.96 mg/dL (0.55-1.30); PHOSPHORUS 4.4 mg/dL (2.7-4.5); POTASSIUM 4.4 mmol/L (3.5-5.1)
[2017-07-09] MEDS: CHOLECALCIFEROL (VITAMIN D3) 2,000 UNIT TABLET PO SCH ×2 (09:24→17:56)
[2017-07-09] MEDS: methylPREDNISolone SOD SUCC 40 MG/ML VIAL IVP SCH ×2 (09:24→21:43)
[2017-07-09] MEDS: PANTOPRAZOLE SODIUM 40 MG/VIAL (PROTONIX) IVP SCH (09:24)
[2017-07-09] MEDS: LACTOBACILLUS RHAMNOSUS GG 1 CAP CAPSULE PO SCH ×2 (09:25→21:41)
[2017-07-09] MEDS: AMIODARONE HCL 200 MG TABLET PO SCH (09:25)
[2017-07-09] MEDS: CARVEDILOL 6.25 MG TABLET (COREG) PO SCH ×2 (09:26→21:41)
[2017-07-09] MEDS ORDERED: DIGOXIN 0.5 MG/2 ML AMP IVP ONE (10:15)
[2017-07-09] MEDS ORDERED: FUROSEMIDE 20 MG/2 ML VIAL IVP ONE (10:30)
[2017-07-09 10:49] LABS: NEUTROPHILS % (AUTO) 96.5 % (40.0-70.0)
[2017-07-09] MEDS: AMIODARONE HCL 900 MG in D5W 482 ML IV SCH (14:42)
[2017-07-09 15:32] LABS: BF APPEARANCE UNSPUN CLEAR (CLEAR)
[2017-07-09 15:33] LABS: SOURCE/TYPE ,BODY FLUID PLEURAL
[2017-07-09 15:34] LABS: BODY FLUID COLOR LT YELLOW (LT YELLOW)
[2017-07-09 15:37] LABS: BODY FLUID TOTAL VOLUME 1000 mL
[2017-07-09 16:30] LABS: BILIRUBIN,URINE NEGATIVE (NEGATIVE); BLOOD, URINE NEGATIVE (NEGATIVE); CLARITY/URINE SL HAZY (CLEAR); COLOR,URINE YELLOW (YELLOW); GLUCOSE,URINE NEGATIVE (NEGATIVE); KETONES,URINE NEGATIVE (NEGATIVE); LEUKOCYTE ESTERASE ,URINE NEGATIVE (NEGATIVE); NITRITE, URINE NEGATIVE (NEGATIVE); PROTEIN URINE NEGATIVE (NEGATIVE); UROBILINOGEN,URINE 0.2 (0.2-1.0)
[2017-07-09 16:40] LABS: RBC, BODY FLUID 53 /uL; WBC, BODY FLUID 28 /uL
[2017-07-09 16:45] LABS: BACTERIA,URINE FEW /HPF (None Seen); FINE GRANULAR CASTS,URINE 0-10 /LPF (None Seen); HYALINE CASTS, URINE 0-10 /LPF (None Seen); MUCUS,URINE 1+ /LPF (None Seen); RBC,URINE 0-3 /HPF (0-3); WBC,URINE 0-3 /HPF (0-3)
[2017-07-09 16:47] LABS: LYMPHOCYTES, BODY FLUID 22 %; MONOCYTES,BODY FLUID 42 %; NEUTROPHIL, BODY FLUID 36 %
[2017-07-09] MEDS: ENOXAPARIN SODIUM 30 MG/0.3 ML SYRINGE SUBCUT SCH (21:42)
[2017-07-10] VITALS (24 sets, daily range): BP systolic 95–154
[2017-07-10] MEDS: INSULIN ASPART 100 UNITS/ML, 10 ML VIAL (NovoLOG) SUBCUT PRN ×5 (00:35→21:29)
[2017-07-10] MEDS: CEFEPIME 1 GM in D5W 50 ML IV SCH ×2 (01:38→12:55)
[2017-07-10] MEDS: VANCOMYCIN HCL 750 MG in NS 250 ML IV SCH ×2 (01:38→15:12)
[2017-07-10] MEDS: metroNIDAZOLE 250 mg/NS 50 ML IV SCH ×3 (05:38→21:35)
[2017-07-10 06:39] LABS: CALCIUM 7.9 mg/dL (8.4-11.0); CREATININE 0.9 mg/dL (0.55-1.30); POTASSIUM 4.7 mmol/L (3.5-5.1)
[2017-07-10 06:54] LABS: BASOPHILS % (AUTO) 0.4 % (0.0-2.0); HEMATOCRIT 39.3 % (36-48); HEMOGLOBIN 12.6 g/dL (12.0-16.0); LYMPHOCYTES # (AUTO) 0.3 K/uL (1.0-5.5); LYMPHOCYTES % (AUTO) 3.4 % (20.5-51.5); MEAN CORPUSCULAR HEMOGLOBIN 32 pg (27-31); MEAN CORPUSCULAR HGB CONC 32 % (32-36); MEAN CORPUSCULAR VOLUME 99 fL (79.0-98.0); MONOCYTES # (AUTO) 0.3 K/uL (0.0-1.0); MONOCYTES % (AUTO) 3.2 % (1.7-9.3); NEUTROPHILS # (AUTO) 8.2 K/uL (1.8-7.7); RED BLOOD CELL COUNT(AUTO) 3.97 MIL/uL (4.2-6.2); RED CELL DISTRIBUTION WIDTH 15.3 % (9.0-15.0); WHITE BLOOD COUNT (AUTO) 8.8 K/uL (4.8-10.8)
[2017-07-10] MEDS: IPRATROPIUM/ALBUTEROL SULFATE 3 ML AMPUL.NEB INH SCH ×6 (07:36→23:00)
[2017-07-10 08:09] LABS: PLATELET COUNT (AUTO) 128 K/uL (130-430)
[2017-07-10] MEDS: methylPREDNISolone SOD SUCC 40 MG/ML VIAL IVP SCH (08:37)
[2017-07-10] MEDS: LACTOBACILLUS RHAMNOSUS GG 1 CAP CAPSULE PO SCH ×2 (08:38→20:46)
[2017-07-10] MEDS: CARVEDILOL 6.25 MG TABLET (COREG) PO SCH ×2 (08:38→20:48)
[2017-07-10] MEDS: PANTOPRAZOLE SODIUM 40 MG/VIAL (PROTONIX) IVP SCH (08:38)
[2017-07-10] MEDS: FLUCONAZOLE 200 mg/ NS 100 ML IV SCH (10:15)
[2017-07-10] MEDS: CHOLECALCIFEROL (VITAMIN D3) 2,000 UNIT TABLET PO SCH ×2 (10:42→17:41)
[2017-07-10] MEDS ORDERED: NS 500 ML IV ONE (14:45)
[2017-07-10 15:08] LABS: BODY FLUID GLUCOSE 197 mg/dL; BODY FLUID TOTAL PROTEIN 0.8 g/dL
[2017-07-10] MEDS ORDERED: MEGESTROL ACETATE 400 MG/10 ML UDC PO ONE (15:15)
[2017-07-10] MEDS: AMIODARONE HCL 900 MG in D5W 482 ML IV SCH (16:00)
[2017-07-10] MEDS ORDERED: AMIODARONE HCL 200 MG TABLET PO SCH (16:45)
[2017-07-10] MEDS ORDERED: RIVAROXABAN 10 MG TABLET PO SCH (18:00)
[2017-07-10] MEDS ORDERED: ENOXAPARIN SODIUM 40 MG/0.4 ML SYRINGE ONE (20:50)
[2017-07-10] MEDS: ENOXAPARIN SODIUM 30 MG/0.3 ML SYRINGE SUBCUT SCH (20:51)
[2017-07-10] MEDS ORDERED: PREDNISONE 20 MG TABLET PO SCH (21:00)
[2017-07-10] MEDS ORDERED: MIRTAZAPINE 15 MG TABLET PO SCH (21:00)
[2017-07-10] MEDS ORDERED: DILTIAZEM HCL 60 MG TABLET PO ONE (21:15)
[2017-07-10] MEDS ORDERED: DILTIAZEM HCL 60 MG TABLET ONE (21:19)
[2017-07-11] VITALS (31 sets, daily range): BP systolic 83–124
[2017-07-11] MEDS: DILTIAZEM HCL 60 MG TABLET PO SCH ×2 (00:06→06:00)
[2017-07-11] MEDS: LevALBUTEROL HCL 1.25 MG/0.5 ML *CONC.* VIAL.NEB (XOPENEX CONC.) INH SCH ×4 (00:59→19:32)
[2017-07-11] MEDS: CEFEPIME 1 GM in D5W 50 ML IV SCH ×2 (01:28→14:55)
[2017-07-11] MEDS: VANCOMYCIN HCL 750 MG in NS 250 ML IV SCH ×2 (02:00→15:30)
[2017-07-11] MEDS: metroNIDAZOLE 250 mg/NS 50 ML IV SCH ×3 (05:26→22:37)
[2017-07-11] MEDS ORDERED: methylPREDNISolone SOD SUCC 40 MG/ML VIAL ONE (05:42)
[2017-07-11] MEDS ORDERED: methylPREDNISolone SOD SUCC/PF 62.5 MG/ML VIAL IVP ONE (05:45)
[2017-07-11] MEDS: MORPHINE 2 MG/ML INJ. SYRINGE IVP PRN (06:50)
[2017-07-11 07:14] LABS: BASOPHILS % (AUTO) 0.2 % (0.0-2.0); HEMATOCRIT 42.3 % (36-48); HEMOGLOBIN 13.8 g/dL (12.0-16.0); LYMPHOCYTES % (AUTO) 6.6 % (20.5-51.5); MEAN CORPUSCULAR HEMOGLOBIN 33 pg (27-31); MEAN CORPUSCULAR HGB CONC 33 % (32-36); MEAN CORPUSCULAR VOLUME 100 fL (79.0-98.0); MONOCYTES % (AUTO) 6.8 % (1.7-9.3); PLATELET COUNT (AUTO) 153 K/uL (130-430); RED BLOOD CELL COUNT(AUTO) 4.22 MIL/uL (4.2-6.2); RED CELL DISTRIBUTION WIDTH 15.1 % (9.0-15.0)
[2017-07-11 07:16] LABS: CALCIUM 7.5 mg/dL (8.4-11.0); CREATININE 1.19 mg/dL (0.55-1.30)
[2017-07-11] MEDS ORDERED: D5LR 1,000 ML IV SCH (07:18)
[2017-07-11] MEDS ORDERED: COMMUNICATION ORDER XX ONE (07:30)
[2017-07-11] MEDS: INSULIN ASPART 100 UNITS/ML, 10 ML VIAL (NovoLOG) SUBCUT PRN ×4 (07:50→21:41)
[2017-07-11] MEDS ORDERED: PREDNISONE 20 MG TABLET NG SCH (08:21)
[2017-07-11] MEDS ORDERED: MORPHINE 2 MG/ML INJ. SYRINGE IVP PRN (08:45)
[2017-07-11] MEDS ORDERED: IPRATROPIUM BROM 0.5 MG/2.5 ML VIAL.NEB (ATROVENT) INH PRN (08:45)
[2017-07-11] MEDS ORDERED: FUROSEMIDE 20 MG/2 ML VIAL IVP ONE (08:45)
[2017-07-11] MEDS ORDERED: LORazepam 2 MG/ML VIAL IVP PRN (08:45)
[2017-07-11] MEDS ORDERED: MEGESTROL ACETATE 400 MG/10 ML UDC NG SCH (09:00)
[2017-07-11] MEDS: PANTOPRAZOLE SODIUM 40 MG/VIAL (PROTONIX) IVP SCH (09:20)
[2017-07-11] MEDS: FLUCONAZOLE 200 mg/ NS 100 ML IV SCH (09:20)
[2017-07-11] MEDS: LACTOBACILLUS RHAMNOSUS GG 1 CAP CAPSULE NG SCH ×2 (09:21→21:39)
[2017-07-11] MEDS: 0.45% NACL 1,000 ML IV SCH (09:21)
[2017-07-11] MEDS: CARVEDILOL 6.25 MG TABLET (COREG) NG SCH ×2 (09:22→21:40)
[2017-07-11] MEDS: CHOLECALCIFEROL (VITAMIN D3) 2,000 UNIT TABLET PO SCH ×2 (09:23→17:49)
[2017-07-11] MEDS: methylPREDNISolone SOD SUCC 40 MG/ML VIAL IVP SCH ×2 (10:07→21:40)
[2017-07-11 10:35] LABS: NEUTROPHILS % (AUTO) 86.4 % (40.0-70.0)
[2017-07-11] MEDS: DILTIAZEM HCL 60 MG TABLET NG SCH ×2 (12:23→17:50)
[2017-07-11] MEDS: IPRATROPIUM BROM 0.5 MG/2.5 ML VIAL.NEB (ATROVENT) INH SCH ×2 (13:56→19:31)
[2017-07-11] MEDS ORDERED: ETOMIDATE 20 MG/ 10 ML VIAL (AMIDATE) IVP ONE (16:25)
[2017-07-11] MEDS ORDERED: RIVAROXABAN 20 MG TABLET PO SCH (18:00)
[2017-07-11] MEDS: MIRTAZAPINE 15 MG TABLET NG SCH (21:39)
[2017-07-11] MEDS: FUROSEMIDE 40 MG/4 ML VIAL IVP SCH (21:40)
[2017-07-11] MEDS ORDERED: DIGOXIN 0.5 MG/2 ML AMP IVP ONE (23:15)
[2017-07-12] VITALS (28 sets, daily range): BP systolic 91–154
[2017-07-12] MEDS ORDERED: DILTIAZEM HCL 90 MG TABLET ONE (00:21)
[2017-07-12] MEDS: DILTIAZEM HCL 90 MG TABLET NG SCH ×4 (00:49→18:08)
[2017-07-12] MEDS: LevALBUTEROL HCL 1.25 MG/0.5 ML *CONC.* VIAL.NEB (XOPENEX CONC.) INH SCH ×4 (02:36→19:42)
[2017-07-12] MEDS: IPRATROPIUM BROM 0.5 MG/2.5 ML VIAL.NEB (ATROVENT) INH SCH ×4 (02:37→19:43)
[2017-07-12] MEDS: VANCOMYCIN HCL 750 MG in NS 250 ML IV SCH ×2 (03:03→14:16)
[2017-07-12] MEDS: CEFEPIME 1 GM in D5W 50 ML IV SCH ×2 (03:03→14:16)
[2017-07-12] MEDS: metroNIDAZOLE 250 mg/NS 50 ML IV SCH ×3 (06:12→21:37)
[2017-07-12] MEDS: INSULIN ASPART 100 UNITS/ML, 10 ML VIAL (NovoLOG) SUBCUT PRN ×4 (06:30→21:21)
[2017-07-12 06:53] LABS: BASOPHILS % (AUTO) 0.1 % (0.0-2.0); HEMATOCRIT 37.4 % (36-48); HEMOGLOBIN 12.3 g/dL (12.0-16.0); LYMPHOCYTES # (AUTO) 0.2 K/uL (1.0-5.5); LYMPHOCYTES % (AUTO) 1.7 % (20.5-51.5); MEAN CORPUSCULAR HEMOGLOBIN 33 pg (27-31); MEAN CORPUSCULAR HGB CONC 33 % (32-36); MEAN CORPUSCULAR VOLUME 99 fL (79.0-98.0); MONOCYTES # (AUTO) 0.1 K/uL (0.0-1.0); NEUTROPHILS # (AUTO) 13.2 K/uL (1.8-7.7); NEUTROPHILS % (AUTO) 97.2 % (40.0-70.0); PLATELET COUNT (AUTO) 125 K/uL (130-430); RED BLOOD CELL COUNT(AUTO) 3.77 MIL/uL (4.2-6.2); RED CELL DISTRIBUTION WIDTH 15.2 % (9.0-15.0); WHITE BLOOD COUNT (AUTO) 13.5 K/uL (4.8-10.8)
[2017-07-12 06:59] LABS: CREATININE 1.07 mg/dL (0.55-1.30); POTASSIUM 4.1 mmol/L (3.5-5.1)
[2017-07-12 07:20] LABS: ALBUMIN 2.4 g/dL (3.4-4.8); TOTAL BILIRUBIN 0.5 mg/dL (0.0-1.0)
[2017-07-12] MEDS: LACTOBACILLUS RHAMNOSUS GG 1 CAP CAPSULE NG SCH ×2 (09:06→21:14)
[2017-07-12] MEDS: methylPREDNISolone SOD SUCC 40 MG/ML VIAL IVP SCH ×2 (09:07→21:14)
[2017-07-12] MEDS: PANTOPRAZOLE SODIUM 40 MG/VIAL (PROTONIX) IVP SCH (09:07)
[2017-07-12] MEDS: CARVEDILOL 6.25 MG TABLET (COREG) NG SCH ×2 (09:07→21:14)
[2017-07-12] MEDS: FUROSEMIDE 40 MG/4 ML VIAL IVP SCH ×2 (09:08→21:13)
[2017-07-12] MEDS: CHOLECALCIFEROL (VITAMIN D3) 2,000 UNIT TABLET PO SCH (09:45)
[2017-07-12] MEDS: FLUCONAZOLE 200 mg/ NS 100 ML IV SCH (09:45)
[2017-07-12] MEDS: 0.45% NACL 1,000 ML IV SCH ×2 (09:45→09:46)
[2017-07-12] MEDS ORDERED: COMMUNICATION ORDER XX ONE (17:45)
[2017-07-12] MEDS ORDERED: GLUCOSE 15 GM GEL (in 37.5 GM TUBE) NG PRN (17:51)
[2017-07-12] MEDS ORDERED: CHOLECALCIFEROL (VITAMIN D3) 2,000 UNIT TABLET NG SCH (17:52)
[2017-07-12] MEDS ORDERED: RIVAROXABAN 20 MG TABLET NG SCH (17:53)
[2017-07-12] MEDS: MIRTAZAPINE 15 MG TABLET NG SCH (21:14)
[2017-07-13] VITALS (26 sets, daily range): BP systolic 81–128
[2017-07-13] MEDS: DILTIAZEM HCL 60 MG TABLET NG SCH ×2 (00:12→06:02)
[2017-07-13] MEDS: LevALBUTEROL HCL 1.25 MG/0.5 ML *CONC.* VIAL.NEB (XOPENEX CONC.) INH SCH ×4 (00:55→19:46)
[2017-07-13] MEDS: IPRATROPIUM BROM 0.5 MG/2.5 ML VIAL.NEB (ATROVENT) INH SCH ×4 (00:55→19:46)
[2017-07-13] MEDS: CEFEPIME 1 GM in D5W 50 ML IV SCH (01:29)
[2017-07-13] MEDS: VANCOMYCIN HCL 750 MG in NS 250 ML IV SCH ×2 (02:12→13:41)
[2017-07-13] MEDS: metroNIDAZOLE 250 mg/NS 50 ML IV SCH ×5 (06:03→21:21)
[2017-07-13 06:25] LABS: BASOPHILS % (AUTO) 0.3 % (0.0-2.0); HEMATOCRIT 38.4 % (36-48); HEMOGLOBIN 12.6 g/dL (12.0-16.0); LYMPHOCYTES # (AUTO) 0.2 K/uL (1.0-5.5); LYMPHOCYTES % (AUTO) 1.4 % (20.5-51.5); MEAN CORPUSCULAR HEMOGLOBIN 32 pg (27-31); MEAN CORPUSCULAR HGB CONC 33 % (32-36); MEAN CORPUSCULAR VOLUME 98 fL (79.0-98.0); MONOCYTES # (AUTO) 0.1 K/uL (0.0-1.0); MONOCYTES % (AUTO) 0.4 % (1.7-9.3); NEUTROPHILS # (AUTO) 14.6 K/uL (1.8-7.7); NEUTROPHILS % (AUTO) 97.9 % (40.0-70.0); PLATELET COUNT (AUTO) 134 K/uL (130-430); RED BLOOD CELL COUNT(AUTO) 3.92 MIL/uL (4.2-6.2); RED CELL DISTRIBUTION WIDTH 14.9 % (9.0-15.0); WHITE BLOOD COUNT (AUTO) 14.9 K/uL (4.8-10.8)
[2017-07-13 06:33] LABS: CALCIUM 8.3 mg/dL (8.4-11.0); CREATININE 0.9 mg/dL (0.55-1.30); POTASSIUM 3.8 mmol/L (3.5-5.1)
[2017-07-13] MEDS: INSULIN ASPART 100 UNITS/ML, 10 ML VIAL (NovoLOG) SUBCUT PRN ×4 (06:55→21:00)
[2017-07-13] MEDS ORDERED: CARVEDILOL 6.25 MG TABLET (COREG) PO SCH (07:15)
[2017-07-13] MEDS ORDERED: LACTOBACILLUS RHAMNOSUS GG 1 CAP CAPSULE PO SCH (07:16)
[2017-07-13] MEDS ORDERED: CHOLECALCIFEROL (VITAMIN D3) 2,000 UNIT TABLET PO SCH (07:16)
[2017-07-13] MEDS ORDERED: RIVAROXABAN 20 MG TABLET PO SCH ×2 (07:16→18:00)
[2017-07-13] MEDS ORDERED: MIRTAZAPINE 15 MG TABLET PO SCH ×2 (07:16→21:00)
[2017-07-13] MEDS ORDERED: DILTIAZEM HCL 60 MG TABLET PO SCH ×2 (07:17→12:00)
[2017-07-13] MEDS: CHOLECALCIFEROL (VITAMIN D3) 2,000 UNIT TABLET PO SCH ×2 (08:00→17:32)
[2017-07-13] MEDS: FUROSEMIDE 40 MG/4 ML VIAL IVP SCH ×2 (09:00→21:30)
[2017-07-13] MEDS: methylPREDNISolone SOD SUCC 40 MG/ML VIAL IVP SCH (09:07)
[2017-07-13] MEDS: PANTOPRAZOLE SODIUM 40 MG/VIAL (PROTONIX) IVP SCH (09:07)
[2017-07-13] MEDS: FLUCONAZOLE 200 mg/ NS 100 ML IV SCH ×2 (09:07→13:40)
[2017-07-13] MEDS: LACTOBACILLUS RHAMNOSUS GG 1 CAP CAPSULE PO SCH ×2 (09:10→21:29)
[2017-07-13] MEDS ORDERED: NS 250 ML IV ONE (09:15)
[2017-07-13] MEDS ORDERED: COMMUNICATION ORDER XX ONE (09:15)
[2017-07-13] MEDS: CARVEDILOL 6.25 MG TABLET (COREG) PO SCH ×2 (09:19→21:00)
[2017-07-13] MEDS: 0.45% NACL 1,000 ML IV SCH ×2 (11:55→23:53)
[2017-07-13] MEDS ORDERED: CEFEPIME 1 GM in D5W 50 ML IV SCH (12:00)
[2017-07-13] MEDS ORDERED: FUROSEMIDE 40 MG/4 ML VIAL IVP ONE (12:15)
[2017-07-13] MEDS ORDERED: CHOLECALCIFEROL (VITAMIN D3) 2,000 UNIT TABLET PO ONE (12:30)
[2017-07-13] MEDS ORDERED: AMIODARONE HCL 200 MG TABLET PO SCH (21:00)
[2017-07-14] VITALS (11 sets, daily range): BP systolic 98–141
[2017-07-14] MEDS ORDERED: CEFEPIME 1 GM in D5W 50 ML IV SCH ×2
[2017-07-14] MEDS: IPRATROPIUM BROM 0.5 MG/2.5 ML VIAL.NEB (ATROVENT) INH SCH ×2 (00:55→07:16)
[2017-07-14] MEDS: LevALBUTEROL HCL 1.25 MG/0.5 ML *CONC.* VIAL.NEB (XOPENEX CONC.) INH SCH ×2 (00:55→07:16)
[2017-07-14] MEDS ORDERED: VANCOMYCIN HCL 750 MG in NS 250 ML IV SCH (03:00)
[2017-07-14 06:40] LABS: HEMATOCRIT 36.8 % (36-48); LYMPHOCYTES # (AUTO) 0.3 K/uL (1.0-5.5); LYMPHOCYTES % (AUTO) 1.5 % (20.5-51.5); MEAN CORPUSCULAR HEMOGLOBIN 32 pg (27-31); MEAN CORPUSCULAR HGB CONC 33 % (32-36); MEAN CORPUSCULAR VOLUME 99 fL (79.0-98.0); MONOCYTES # (AUTO) 0.2 K/uL (0.0-1.0); MONOCYTES % (AUTO) 1.2 % (1.7-9.3); NEUTROPHILS # (AUTO) 17.1 K/uL (1.8-7.7); NEUTROPHILS % (AUTO) 97.3 % (40.0-70.0); PLATELET COUNT (AUTO) 133 K/uL (130-430); RED BLOOD CELL COUNT(AUTO) 3.73 MIL/uL (4.2-6.2); RED CELL DISTRIBUTION WIDTH 15.2 % (9.0-15.0); WHITE BLOOD COUNT (AUTO) 17.6 K/uL (4.8-10.8)
[2017-07-14 06:42] LABS: CALCIUM 8.1 mg/dL (8.4-11.0); CREATININE 0.89 mg/dL (0.55-1.30); POTASSIUM 3.7 mmol/L (3.5-5.1)
[2017-07-14] MEDS: metroNIDAZOLE 250 mg/NS 50 ML IV SCH (06:58)
[2017-07-14] MEDS: INSULIN ASPART 100 UNITS/ML, 10 ML VIAL (NovoLOG) SUBCUT PRN (07:07)
[2017-07-14] MEDS ORDERED: DILTIAZEM HCL 60 MG TABLET PO ONE (08:15)
[2017-07-14] MEDS: CHOLECALCIFEROL (VITAMIN D3) 2,000 UNIT TABLET PO SCH (08:42)
[2017-07-14] MEDS: LACTOBACILLUS RHAMNOSUS GG 1 CAP CAPSULE PO SCH (08:43)
[2017-07-14] MEDS: PANTOPRAZOLE SODIUM 40 MG/VIAL (PROTONIX) IVP SCH (08:43)
[2017-07-14] MEDS: FUROSEMIDE 40 MG/4 ML VIAL IVP SCH (08:44)
[2017-07-14] MEDS ORDERED: PREDNISONE 20 MG TABLET PO SCH (09:00)
[2017-07-14] MEDS: CARVEDILOL 6.25 MG TABLET (COREG) PO SCH (09:00)
== END 2017-07-14 09:50 | disposition short-term general hospital (02) | DRG 314 ==
LOC: SED 10:57 → STU 12:49 → SIC 07-02 23:08
PROVIDERS: ADMIT Internal Medicine; ATTEND Internal Medicine
PROC: 5A1955Z Respiratory Ventilation, Greater than 96 Consecutive Hours (ICD-10-PCS; 2017-07-03)
PROC: 0BH17EZ Insertion of Endotracheal Airway into Trachea, Via Natural or Artificial Opening (ICD-10-PCS; 2017-07-03)
PROC: 0W993ZZ Drainage of Right Pleural Cavity, Percutaneous Approach (ICD-10-PCS; principal; 2017-07-09)
PROC: 5A1945Z Respiratory Ventilation, 24-96 Consecutive Hours (ICD-10-PCS; 2017-07-11)
DX: T80.211A Bloodstream infection due to central venous catheter, initial encounter (principal); A41.9 Sepsis, unspecified organism; J96.01 Acute respiratory failure with hypoxia; N17.0 Acute kidney failure with tubular necrosis; R65.21 Severe sepsis with septic shock; J15.9 Unspecified bacterial pneumonia; J18.9 Pneumonia, unspecified organism; J44.0 Chronic obstructive pulmonary disease with (acute) lower respiratory infection; B49 Unspecified mycosis; D89.9 Disorder involving the immune mechanism, unspecified; C85.80 Other specified types of non-Hodgkin lymphoma, unspecified site; N17.9 Acute kidney failure, unspecified; I48.92 Unspecified atrial flutter; I11.0 Hypertensive heart disease with heart failure; I50.9 Heart failure, unspecified; I48.0 Paroxysmal atrial fibrillation; Y83.8 Other surgical procedures as the cause of abnormal reaction of the patient, or of later complication, without mention of misadventure at the time of the procedure; F17.210 Nicotine dependence, cigarettes, uncomplicated; I34.0 Nonrheumatic mitral (valve) insufficiency; K52.9 Noninfective gastroenteritis and colitis, unspecified; Y95 Nosocomial condition; Z79.899 Other long term (current) drug therapy; Z82.49 Family history of ischemic heart disease and other diseases of the circulatory system; Z92.21 Personal history of antineoplastic chemotherapy; Y92.89 Other specified places as the place of occurrence of the external cause
CPT/HCPCS: 32555; 36415; 36600; 71010; 71250-TC; 76770; 80048; 80053; 80061; 80202-TC; 80307; 81000-TC; 82306; 82607; 82803-TC; 82947-TC; 82962; 83036; 83540-TC; 83550-TC; 83605; 83690-TC; 83735-TC; 83880; 84100-TC; 84157-TC; 84439; 84443-TC; 84484; 85007; 85025; 85027; 85379; 85610-TC; 85651-TC; 85730-TC; 86886; 86900; 86901; 87040-TC; 87070-TC; 87081; 87086; 87116; 87205-TC; 87230-TC; 88108; 89051-TC; 89060-TC; 93005; 93306; 94002; 94003; 94640; 96361; 96374; 96375; 99285; C1729; C9113; J0282; J0330; J0692; J1030; J1160; J1450; J1644; J1650; J1720; J1815; J1940; J2060; J2270; J2704; J2930; J3370; J3490; J7030; J7050; J7060; J7120; J7512